=== PATIENT | female | born 1980 | race Two or more races ===

== ENCOUNTER 2024-04-22 08:19 | Inpatient (IN) | payer OTHER ==
[~2024-04-22] VITALS: Ht 167.6 cm; Wt 99.8 kg
--- NOTE | 2024-04-22 08:37 | NUR ---
PACIENTE FEMENINA ALERTA Y ORIENTADA X3, REFIERE TENER DOLOR ABDOMINAL QUEENIE Y TIMOTHY, TAMBIEN VERBALIZA QUE PADECE DE ESTRENIMIENTO Y A ESTADO TOMANDO LAXANTE Y NO A PODIDO EVACUAR.
--- NOTE | 2024-04-22 09:17 | NUR ---
SE ORIENTA A PACIENTE SOBRE TX MEDICO, REFIERE ENTENDER. SE REALIZAN MUESTRAS DE LABORATORIO BAJO MEDIDAS ASEPTICAS. SE COORDINA CT. PACIENTEM MANEJADA POR . PENDIENTE RE-EVALUACION MEDICA.
[2024-04-22 09:49] LABS: HEMATOCRIT 32.5 % (36.0-45.00); HEMOGLOBIN 10.2 g/dL (12.0-15.00); MEAN CELL VOLUME 75.3 fL (80.00-100.00); MEAN CORPUSCULAR HEMOGLOBIN 23.7 pg (27.00-32.0); MEAN CORPUSCULAR HGB CONC 31.4 g/dl (32.0-36.0); PLATELET COUNT 261 K/uL (150-450); RED BLOOD COUNT 4.31 M/uL (4.00-6.00); RED CELL DISTRIBUTION WIDTH 15.6 % (11.5-14.5)
[2024-04-22 10:14] LABS: URINE APPEARANCE Cloudy; URINE BILIRRUBIN Negative (NEGATIVE); URINE BLOOD Negative; URINE COLOR Dark Yellow; URINE GLUCOSE Negative (NEGATIVE); URINE KETONE Trace (NEGATIVE); URINE LEUKOCYTE Small; URINE NITRATE Negative; URINE PROTEIN Trace (NEGATIVE)
[2024-04-22 10:17] LABS: URINE BACTERIA 6970.4 uL (0.0-1933); URINE EPITHELIAL CELLS 104.9 uL (0.0-38.8); URINE RBC 2.6 uL (0.0-20.8); URINE WBC 88.6 uL (0.0-23.2)
[2024-04-22 10:18] LABS: ALKALINE PHOSPHATASE 80 U/L (50-136); ALT/SGPT 15 U/L (12-78); ANION GAP 8 (10.0-20.0); AST/SGOT 9 U/L (15-37); BILIRUBIN TOTAL 1.26 mg/dL (0.3-1.2); BLOOD UREA NITROGEN 17 mg/dL (7-18); BUN CREA RATIO 22 (7.0-25.0); CALCIUM 8.4 mg/dL (8.5-10.1); CARBON DIOXIDE 26 mEq/L (21-32); CHLORIDE 112 mmol/L (98-107); CREATININE SERUM 0.77 mg/dL (0.55-1.02); GFR 82.21; GLOBULINA 3.7 G/DL (2.4-3.5); GLUCOSE FASTING 83 mg/dL (65-100); OSMOLALITY SERUM 284 MOSM/KG (275-295); POTASSIUM 4.47 mEq/L (3.5-5.1); SODIUM 142 mmol/L (136-145); TOTAL PROTEIN 6.7 gm/dL (6.4-8.2)
[2024-04-22 10:19] LABS: HCG QUANTITATIVE < 1 mUI/mL (1-3)
[2024-04-22 10:36] LABS: URINE CAST 0.58 uL (0.0-1.40)
[2024-04-22] MEDS ORDERED: PIPERACILLIN/TAZOBACTAM SODIUM 3.375 GM VIAL IV ONE (11:45)
[2024-04-22] MEDS ORDERED: 0.9 % SODIUM CHLORIDE 1,000 ML IV ONE (11:45)
[2024-04-22] MEDS ORDERED: DOXYCYCLINE HYCLATE 100MG IV SCH (11:55)
[2024-04-22] MEDS ORDERED: METRONIDAZOLE/SODIUM CHLORIDE 500 MG/100 ML PIGGYBACK IV SCH (11:55)
[2024-04-22] MEDS ORDERED: PANTOPRAZOLE SODIUM 40 MG/VIAL VIAL IV PUSH ONE (12:15)
--- NOTE | 2024-04-22 13:16 | NUR ---
RE-EVALUA PTE. SE ORIENTA A PACIENTE SOBRE TX MEDICO, REFIERE ENTENDER. SE ADMINISTRAN MEDICAMENTOS AARTI ORDEN MEDICA.
[2024-04-22 13:38] VITALS: BP 118/80; O2SAT 97
[2024-04-22 15:24] VITALS: BP 118/79; O2SAT 99
[2024-04-22 16:00] VITALS: BP 118/77
[2024-04-23 02:51] VITALS: BP 115/71
[2024-04-23 07:39] LABS: HEMATOCRIT 29.5 % (36.0-45.00); HEMOGLOBIN 9.5 g/dL (12.0-15.00); MEAN CORPUSCULAR HEMOGLOBIN 24.2 pg (27.00-32.0); MEAN CORPUSCULAR HGB CONC 32.2 g/dl (32.0-36.0); PLATELET COUNT 229 K/uL (150-450); RED BLOOD COUNT 3.93 M/uL (4.00-6.00)
[2024-04-23 08:29] VITALS: BP 102/68
[2024-04-23] MEDS ORDERED: FAMOtidine 20 MG TABLET PO SCH (09:00)
[2024-04-23] MEDS ORDERED: CEFTRIAXONE SODIUM 1,000 MG VIAL IV SCH (09:00)
[2024-04-23 15:52] VITALS: BP 115/72
[2024-04-24 01:00] VITALS: BP 101/66
[2024-04-24 07:55] VITALS: BP 135/78
[2024-04-24 15:37] VITALS: BP 115/73
[2024-04-24] MEDS ORDERED: DOXYCYCLINE HYCLATE 100MG IV SCH (17:00)
[2024-04-25] VITALS: BP 116/73
[2024-04-25 11:40] VITALS: BP 138/76
[2024-04-25 16:10] VITALS: BP 111/62
[2024-04-26 01:08] VITALS: BP 108/70
[2024-04-26 15:31] VITALS: BP 117/54
[2024-04-26] MEDS ORDERED: DOXYCYCLINE HYCLATE 100 MG CAPSULE PO SCH (17:00)
[2024-04-27 00:32] VITALS: BP 117/69
[2024-04-27 08:00] VITALS: BP 113/75
[2024-04-27] MEDS ORDERED: ACETAMINOPHEN 500 MG GEL..CAP PO PRN (13:00)
[2024-04-27 16:00] VITALS: BP 107/55
[2024-04-28 01:05] VITALS: BP 114/67
[2024-04-28 08:55] VITALS: BP 132/56
[2024-04-28 16:05] VITALS: BP 118/73
[2024-04-29 00:56] VITALS: BP 117/67
[2024-04-29 08:27] VITALS: BP 138/74
[2024-04-29 15:35] VITALS: BP 125/75
[2024-04-30 00:23] VITALS: BP 124/66
[2024-04-30 08:02] VITALS: BP 137/87
[2024-04-30] MEDS ORDERED: MONDOXYNE NL100 MG PO (11:45)
[2024-04-30] MEDS ORDERED: NAPR500T14 PO (11:45)
== END 2024-04-30 12:18 | disposition home or self-care (01) | DRG 759 ==
LOC: ER 08:21 → OB/GYN 13:35
PROVIDERS: General Practice; ADMIT Obstetrics & Gynecology; ATTEND Obstetrics & Gynecology
PROC: BU4CZZZ Ultrasonography of Uterus and Ovaries (ICD-10-PCS; principal; 2024-04-22)
PROC: BW21ZZZ Computerized Tomography (CT Scan) of Abdomen and Pelvis (ICD-10-PCS; 2024-04-22)
DX: N70.93 Salpingitis and oophoritis, unspecified (principal); R10.32 Left lower quadrant pain; Z20.822 Contact with and (suspected) exposure to COVID-19